=== PATIENT | female | born 1935 | race Caucasian/White ===

== ENCOUNTER 2020-11-09 08:12 | Emergency (ER) | payer MEDICARE ==
[~2020-11-09] VITALS: Ht 149.9 cm; Wt 52.2 kg
[~2020-11-09 08:12] MED LIST: ASPIRIN81 M2 PO; CALCIUM 500 +1 EAC5 PO; CALCIUM 600 +1 EAC1 PO; DOXYCYCLINE 10100 MG PO; FUROSEMIDE 20 M20 MG PO; GLUCOSAMINE &1 EAC1 PO; HYDROCODON-ACE1 EAC7; HYDROCODONE-APA1 TA1 PO; HYZAAR 50-12.51 TAB PO; LEVOTHROID100 MC1 PO; NAMENDA XR28 MG PO; PERCOCET 5-3251 EACH PO; POTASSIUM20 PO; PREMARIN0.3 MG PO; RESTASIS1 EACH OPHTHALMIC; TOPROL XL25 MG PO; ULTRAM 50MG TAB50 MG PO
[2020-11-09] MEDS ORDERED: LEVO-T75 MCG PO (08:29)
[2020-11-09] MEDS ORDERED: DERMACINRX5000 UNI1 PO (08:30)
[2020-11-09] MEDS ORDERED: ESCITALOPRA5 MG/5 ML PO (08:31)
[2020-11-09] MEDS ORDERED: NAMENDA XR28 MG PO (08:31)
[2020-11-09] MEDS ORDERED: DEPAKOTE 250MG250 MG PO (08:31)
[2020-11-09] MEDS ORDERED: FELODIPINE ER10 MG PO (08:31)
[2020-11-09] MEDS ORDERED: SIMVASTATIN80 MG PO (08:32)
[2020-11-09] MEDS ORDERED: SEROQUEL 25 MG25 MG PO (08:32)
[2020-11-09] MEDS ORDERED: KEFLEX500 M1 PO (09:04)
[2020-11-09] MEDS ORDERED: HYDROCODON-ACE1 EAC7 PO (09:04)
[2020-11-09 09:10] VITALS: BP 142/85
== END 2020-11-09 09:10 | disposition home or self-care (01) ==
LOC: M.ERS 08:12
DX: S01.511A Laceration without foreign body of lip, initial encounter (principal); I10 Essential (primary) hypertension; Z88.5 Allergy status to narcotic agent; Z90.710 Acquired absence of both cervix and uterus; W01.0XXA Fall on same level from slipping, tripping and stumbling without subsequent striking against object, initial encounter; Y93.89 Activity, other specified; Y92.89 Other specified places as the place of occurrence of the external cause; Y99.8 Other external cause status